=== PATIENT | male | born 1955 | race Hispanic/Latino ===

== ENCOUNTER 2022-06-12 16:42 | Emergency (ER) | payer MEDICARE ==
[~2022-06-12] VITALS: Ht 170.2 cm; Wt 83.0 kg
[2022-06-12] MEDS ORDERED: PREDNISONE50 MG PO (18:18)
[2022-06-12] MEDS ORDERED: GABAPENTIN300 MG PO (18:18)
[2022-06-12] MEDS ORDERED: CYCLOBENZAPRINE5 MG PO (18:20)
[2022-06-12] MEDS ORDERED: DEXAMETHASONE SOD PHOS INJ 4 MG/ML SDV ONE (18:39)
[2022-06-12] MEDS ORDERED: DEXAMETHASONE SOD PHOS INJ 4 MG/ML SDV IM ONE (18:45)
== END 2022-06-12 18:53 | disposition home or self-care (01) ==
LOC: FSED 16:48
DX: M54.50 Low back pain, unspecified (principal); E11.9 Type 2 diabetes mellitus without complications; E78.5 Hyperlipidemia, unspecified
CPT/HCPCS: 99282; J1100